=== PATIENT | male | born 1995 | race Caucasian/White ===

== ENCOUNTER 2017-03-11 08:11 | Emergency (ER) | payer OTHER ==
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
[2017-03-11] MEDS ORDERED: MUPIROCIN 2% OINTMENT 22 GM TP ONE (09:13)
[2017-03-11 09:38] VITALS: BP 140/94
== END 2017-03-11 09:38 | disposition home or self-care (01) ==
LOC: ER 08:11
DX: S80.811A Abrasion, right lower leg, initial encounter (principal); S50.311A Abrasion of right elbow, initial encounter; V19.9XXA Pedal cyclist (driver) (passenger) injured in unspecified traffic accident, initial encounter
CPT/HCPCS: 99283; J3490

== ENCOUNTER 2017-08-17 13:13 | Observation (INO) | payer OTHER ==
[~2017-08-17 13:13] MED LIST: DEXAMETHASONE SOD PHOSPHATE INJ 4 MG/1 ML VIAL ONE; GLYCOPYRROLATE INJ 0.4 MG/2 ML VIAL ONE; LIDOCAINE 2% INJ-PF (20 MG/ML) 10 ML AMPUL ONE; NEOSTIGMINE METHYLSULFATE 10 MG/10 ML VIAL ONE; ONDANSETRON HCL INJ/PF 4 MG/2 ML SDV ONE; SUCCINYLCHOLINE CHLORIDE INJ 200 MG/10 ML VIAL ONE; VECURONIUM BROMIDE INJ 10 MG VIAL IV ONE
--- NOTE | 2017-08-17 14:34 | ER Document Report ---
ED Medical Screen (RME) - General Chief Complaint: Abdominal Pain Stated Complaint: STOMACH PAIN Mode of Arrival: Ambulatory Information source: Patient TRAVEL OUTSIDE OF THE [place] IN LAST 30 DAYS: No - HPI Onset: Yesterday Onset/Duration: Sudden, Constant Quality of pain: Sharp Severity: Moderate Associated Symptoms: Diarrhea, Vomiting. denies: Fever Notes: 08/17/17 14:32 Patient arrives with complaints of left lower quadrant abdominal pain. He states this started suddenly and is sharp. It is constant. She had nausea, vomiting, diarrhea. No blood in his stool. No fever. No urinary symptoms. No history of kidney stones. No prior abdominal surgeries. - Related Data Allergies/Adverse Reactions: No Known Allergies Allergy (Unverified 08/17/17 13:40) Past Medical History - Social History Chew tobacco use (# tins/day): No Frequency of alcohol use: None Drug Abuse: None Renal/ Medical History: Denies: Hx Peritoneal Dialysis Surgical Hx: Negative - Immunizations Hx Diphtheria, Pertussis, Tetanus Vaccination: Yes History of Influenza Vaccine for 08/2017 - 12/2017 Season: No Review of Systems - Review of Systems -: Yes All other systems reviewed and negative Physical Exam - Vital signs Vitals: Temp Pulse Resp BP Pulse Ox 98.3 F 83 16 150/85 H 100 08/17/17 13:40 08/17/17 13:40 08/17/17 13:40 08/17/17 13:40 08/17/17 13:40 - Notes Notes: GENERAL: alert, cooperative, nontoxic, no distress. HEAD: normocephalic, atraumatic EYES: conjunctiva pink without discharge, no external redness or swelling. EARS: no external swelling, no external redness NOSE: atraumatic, no external swelling MOUTH/THROAT: mucous membranes moist and pink NECK: soft, supple, full range of motion, no meningismus. CHEST: no distress, lungs clear and equal throughout. No wheezing, rales, rhonchi. CARDIAC: regular rate and rhythm, no murmur, normal capillary refill, normal pulses. BACK: full range of motion, no CVA tenderness. EXTREMITIES: full range of motion of all extremities. No redness, no swelling. NEURO: alert and oriented 3, no focal deficits, full range of motion of all extremities. PYSCH: appropriate mood, affect. Patient is cooperative. SKIN: pink, warm, dry, no rash. ABDO: Tenderness to palpation of the left lower quadrant. Slight tenderness in the right lower quadrant. Course - Vital Signs Vital signs: Temp Pulse Resp BP Pulse Ox 98.3 F 83 16 150/85 H 100 08/17/17 13:40 08/17/17 13:40 08/17/17 13:40 08/17/17 13:40 08/17/17 13:40
[2017-08-17 15:44] LABS: ABSOLUTE LYMPHOCYTES (AUTO) 1.3 10^3/uL (0.5-4.7); ABSOLUTE MONOCYTES (AUTO) 0.6 10^3/uL (0.1-1.4); ABSOLUTE NEUT (AUTO) 14.9 10^3/uL (1.7-8.2); BASOPHILS % (AUTO) 0.2 % (0-2); EOSINOPHILS % (AUTO) 0.1 % (0-6); HEMATOCRIT 52.8 % (37.9-51.0); HEMOGLOBIN 18.8 g/dL (13.5-17.0); HGB HCT DIFFERENCE 3.6; LYMPHOCYTES % (AUTO) 7.5 % (13-45); MEAN CORPUSCULAR HEMOGLOBIN 30.9 pg (27.0-33.4); MEAN CORPUSCULAR HGB CONC 35.5 g/dL (32.0-36.0); MEAN CORPUSCULAR VOLUME 87 fl (80-97); MONOCYTES % (AUTO) 3.4 % (3-13); RED BLOOD COUNT 6.08 10^6/uL (4.35-5.55); RED CELL DISTRIBUTION WIDTH 13.1 % (11.5-14.0); SEGMENTED NEUTROPHILS % (AUTO) 88.8 % (42-78); WHITE BLOOD COUNT 16.8 10^3/uL (4.0-10.5)
[2017-08-17 15:51] LABS: AMORPHOUS SEDIMENT,URINE 1+ /HPF; APPEARANCE,URINE CLOUDY; BILIRUBIN,URINE NEGATIVE (NEGATIVE); GLUCOSE, URINE NEGATIVE (NEGATIVE); KETONES,URINE 80 mg/dL (NEGATIVE); LEUKOCYTE ESTERASE,URINE NEGATIVE (NEGATIVE); NITRITE,URINE NEGATIVE (NEGATIVE); PROTEIN,URINE NEGATIVE (NEGATIVE); URINE SPECIFIC GRAVITY 1.018; UROBILINOGEN,URINE NEGATIVE mg/dL (<2.0)
--- NOTE | 2017-08-17 16:02 | RADIOLOGY REPORT (SQ) ---
EXAM DESCRIPTION: CT ABD/PELVIS WITH IV ONLY COMPLETED DATE/TIME: 08/17/2017 3:42 pm REASON FOR STUDY: llq pain COMPARISON: None. TECHNIQUE: CT scan of the abdomen and pelvis performed using helical scanning technique with dynamic intravenous contrast injection. No oral contrast. Images reviewed with lung, soft tissue, and bone windows. Reconstructed coronal and sagittal MPR images reviewed. Delayed images for evaluation of the urinary system also acquired. All images stored on PACS. All CT scanners at this facility use dose modulation, iterative reconstruction, and/or weight based d osing when appropriate to reduce radiation dose to as low as reasonably achievable (ALARA). [facility]: Dose Right [facility]: CareDose [facility]: Dose Right [facility]: Teradose 4D [facility]: [employer] CONTRAST TYPE AND DOSE: contrast/concentration: Isovue 370.00 mg/ml; Total Contrast Delivered: 100.0 ml; Total Saline Delivered: 45.0 ml RENAL FUNCTION: None required. The patient is less than 50 years old. RADIATION DOSE: Up-to-date CT equipment and radiation dose reduction techniques were employed. CTDIv ol: 10.5 - 14.5 mGy. DLP: 1429 mGy-cm.. LIMITATIONS: None. FINDINGS: LOWER CHEST: No significant findings. No nodules or infiltrates. LIVER: Normal size. No masses. No dilated ducts. SPLEEN: Normal size. No focal lesions. PANCREAS: No masses. No significant calcifications. No adjacent inflammation or peripancreatic fluid collections. Pancreatic duct not dilated. GALLBLADDER: No identified stones by CT criteria. No inflammatory changes to suggest cholecystitis. ADRENAL GLANDS: No significant masses or asymmetry. RIGHT KIDNEY AND URETER: No solid masses. No significant calcifications. No hydronephrosis or hyd roureter. LEFT KIDNEY AND URETER: No solid masses. No significant calcifications. No hydronephrosis or hydr oureter. AORTA AND VESSELS: No aneurysm. No dissection. Renal arteries, SMA, celiac without stenosis. RETROPERITONEUM: No retroperitoneal adenopathy, hemorrhage or masses. BOWEL AND PERITONEAL CAVITY: No masses or inflammatory changes. No free fluid or peritoneal masses. APPENDIX: Small appendicolith. PELVIS: No mass. No free fluid. Normal bladder. ABDOMINAL WALL: No masses. No hernias. BONES: No significant or acute findings. OTHER: No other significant finding. IMPRESSION: No acute abnormality in the abdomen or pelvis. TECHNICAL DOCUMENTATION: JOB ID: [id number] Quality ID # [id number]: Final reports with documentation of one or more dose reduction techniques (e.g., Au tomated exposure control, adjustment of the mA and/or kV according to patient size, use of iterative reconstruction technique) 2010 [employer]- All Rights Reserved
[2017-08-17 16:05] LABS: ALANINE AMINOTRANSFERASE 50 U/L (21-72); ALBUMIN 5.6 g/dL (3.5-5.0); ALKALINE PHOSPHATASE 123 U/L (38-126); ANION GAP 16 (5-19); ASPARTATE AMINO TRANSFERASE 40 U/L (17-59); BILIRUBIN,DIRECT 0.5 mg/dL (0.0-0.4); BILIRUBIN,TOTAL 1.4 mg/dL (0.2-1.3); BLOOD UREA NITROGEN 9 mg/dL (7-20); CALCIUM 10.5 mg/dL (8.4-10.2); CARBON DIOXIDE 27 mmol/L (22-30); CHLORIDE 100 mmol/L (98-107); GLUCOSE 110 mg/dL (75-110); LIPASE 59.1 U/L (23-300); POTASSIUM 4.2 mmol/L (3.6-5.0); SODIUM 143.3 mmol/L (137-145); TOTAL PROTEIN 9.3 g/dL (6.3-8.2)
[2017-08-17] MEDS ORDERED: ONDANSETRON HCL INJ/PF 4 MG/2 ML SDV IV ONE (17:09)
[2017-08-17] MEDS ORDERED: NORMAL SALINE 1000 ML 1,000 ML IV ONE ×2 (17:09→18:08)
--- NOTE | 2017-08-17 18:14 | ER Document Report ---
ED GI/ - General Mode of Arrival: Ambulatory Information source: Patient TRAVEL OUTSIDE OF THE [place] IN LAST 30 DAYS: No <JULIAN CALVILLO - Last Filed: 08/17/17 22:17> <FARHAD JOHNSON - Last Filed: 08/17/17 23:05> - General Chief Complaint: Abdominal Pain Stated Complaint: STOMACH PAIN Time Seen by Provider: 08/17/17 17:02 Notes: Patient is a 22-year-old male who presents to the emergency department today with complaints of abdominal pain with associated nausea and vomiting. Patient states that this pain began this morning upon awakening. Patient describes the pain as above his waistline and below his rib cage on the right side. Patient states that he has been vomiting up bile. Patient denies any flank pain. (JULIAN CALVILLO) - Related Data Allergies/Adverse Reactions: No Known Allergies Allergy (Unverified 08/17/17 13:40) Home Medications: Current Home Medications No Home Medications 08/17/17 [History] Past Medical History - General Information source: Patient - Social History Smoking Status: Current Every Day Smoker Cigarette use (# per day): Yes Chew tobacco use (# tins/day): Yes Frequency of alcohol use: None Drug Abuse: None Lives with: Family Family History: Reviewed & Not Pertinent Patient has suicidal ideation: No - Medical History Medical History: Negative Surgical Hx: Negative - Immunizations Hx Diphtheria, Pertussis, Tetanus Vaccination: Yes <JULIAN CALVILLO - Last Filed: 08/17/17 22:17> Review of Systems - Review of Systems Constitutional: No symptoms reported EENT: No symptoms reported Cardiovascular: No symptoms reported Respiratory: No symptoms reported Gastrointestinal: See HPI, Abdominal pain, Diarrhea, Nausea, Vomiting Genitourinary: denies: Flank pain Male Genitourinary: No symptoms reported Musculoskeletal: No symptoms reported Skin: No symptoms reported Hematologic/Lymphatic: No symptoms reported Neurological/Psychological: No symptoms reported -: Yes All other systems reviewed and negative <JULIAN CALVILLO - Last Filed: 08/17/17 22:17> Physical Exam <JULIAN CALVILLO - Last Filed: 08/17/17 22:17> <FARHAD JOHNSON - Last Filed: 08/17/17 23:05> - Vital signs Vitals: Temp Pulse Resp BP Pulse Ox 98.3 F 83 16 150/85 H 100 08/17/17 13:40 08/17/17 13:40 08/17/17 13:40 08/17/17 13:40 08/17/17 13:40 - Notes Notes: Physical Exam: General: Alert, appears uncomfortable. HEENT: Normocephalic. Atraumatic. PERRL. Extraocular movements intact. Oropharynx clear. Dry mucous membranes. Neck: Supple. Non-tender. Respiratory: No respiratory distress. Clear and equal breath sounds bilaterally. Cardiovascular: Tachycardic, regular rhythm. Abdominal: RLQ tenderness with palpation with guarding, no rebound. No distension. Normal Bowel Sounds. Back: Non-tender. No deformity or step off. Extremities: Moves all four extremities. Upper extremities: Normal inspection. Normal ROM. Lower extremities: Normal inspection. No edema. Normal ROM. Neurological: Normal cognition. AAOx4. Normal speech. Psychological: Normal affect. Normal Mood. Skin: Warm. Dry. Normal color. (JULIAN CALVILLO) Course - Laboratory Result Diagrams: 08/17/17 15:27 08/17/17 15:27 <JULIAN CALVILLO - Last Filed: 08/17/17 22:17> - Laboratory Result Diagrams: 08/17/17 15:27 08/17/17 15:27 - Diagnostic Test Radiology reviewed: Reports reviewed <FARHAD JOHNSON - Last Filed: 08/17/17 23:05> - Re-evaluation Re-evalutation: 08/17/17 Patient presents with right lower quadrant pain and vomiting. Patient has right lower quadrant tenderness with guarding. Patient is also been vomiting. CT with appendicolith. Patient was discussed with Dr. Lopez -- will take the patient to the OR. Patient is agreeable to this plan. Patient has been n.p.o. Stable at time of admission. (FARHAD JOHNSON) - Vital Signs Vital signs: Temp Pulse Resp BP Pulse Ox 97.8 F 84 18 135/86 H 98 08/17/17 22:20 08/17/17 22:20 08/17/17 22:20 08/17/17 22:20 08/17/17 22:20 - Laboratory Laboratory results interpreted by me: 08/17/17 08/17/1708/17/17 15:27 15:27 15:27 WBC 16.8 H RBC 6.08 H Hgb 18.8 H Hct 52.8 H Seg Neutrophils % 88.8 H Lymphocytes % 7.5 L Absolute Neutrophils 14.9 H Calcium 10.5 H Total Bilirubin 1.4 H Direct Bilirubin 0.5 H Total Protein 9.3 H Albumin 5.6 H Urine Ketones 80 H Critical Care Note - Critical Care Note Total time excluding time spent on procedures (mins): 35 - Evaluation and management of acute abdominal pain, multiple re-evaluations, consultation with surgeon, counseling of patient, coordination of admission <FARHAD JOHNSON - Last Filed: 08/17/17 23:05> Discharge <JULIAN CALVILLO - Last Filed: 08/17/17 22:17> - Discharge Admitting Provider: Surgicalist - [facility] Unit Admitted: Surgical Floor <FARHAD JOHNSON - Last Filed: 08/17/17 23:05> - Discharge Clinical Impression: Dehydration Appendicitis Qualifiers: Appendicitis type: acute appendicitis Acute appendicitis type: with localized peritonitis Qualified Code(s): K35.3 - Acute appendicitis with localized peritonitis Condition: Stable Disposition: ADMITTED INPATIENT Scribe Attestation: 08/17/17 23:05 I personally performed the services described in the documentation, reviewed and edited the documentation which was dictated to the scribe in my presence, and it accurately records my words and actions. (FARHAD JOHNSON) Scribe Documentation - Scribe Written by Valentino:: Valentino Galvan, 08/17/2017 2104 acting as scribe for :: Sarmad <JULIAN CALVILLO - Last Filed: 08/17/17 22:17>
[2017-08-17] MEDS ORDERED: PIPERACILLIN/TAZOBACTAM 3.375 GM VIAL IV ONE (18:21)
[2017-08-17] MEDS ORDERED: HYDROMORPHONE HCL INJ/PF 2 MG/ML AMPULE ONE (19:00)
[2017-08-17] MEDS ORDERED: FENTANYL CITRATE INJ/PF 100 MCG/2 ML AMPUL ONE (19:01)
[2017-08-17] MEDS ORDERED: PROPOFOL INJ 200 MG/20 ML VIAL IV ONE (19:01)
[2017-08-17] MEDS ORDERED: MIDAZOLAM 2 MG/2 ML INJ ONE (19:01)
[2017-08-17] MEDS ORDERED: BUPIVACAINE HCL 0.25 % INJ/PF (2.5 MG/1 ML) 30 ML VIAL ONE (19:06)
[2017-08-17] MEDS ORDERED: PROMETHAZINE HCL INJ 25 MG/1 ML VIAL IV PRN (19:17)
[2017-08-17] MEDS ORDERED: FENTANYL CITRATE INJ/PF 100 MCG/2 ML AMPUL IV PRN ×3 (19:17)
[2017-08-17] MEDS ORDERED: MORPHINE SULFATE 10 MG/ML INJ IV PRN ×2 (19:17→20:44)
[2017-08-17] MEDS ORDERED: DIPHENHYDRAMINE HCL 50 MG/ML VIAL IV PRN (19:17)
[2017-08-17] MEDS ORDERED: MEPERIDINE HCL/PF INJ 25 MG/1 ML DISP.SYRIN IV PRN (19:17)
--- NOTE | 2017-08-17 19:21 | PDOC H&P ---
History of Present Illness Admission Date/PCP: Today Patient complains of: Abdominal pain nausea vomiting History of Present Illness: LEONARD ADAMES is a 22 year old male presents emergency department by ground rescue complaining of acute onset abdominal pain and multiple episodes of nausea and vomiting. One bowel movement loose. Patient denies history of trauma, previous episodes, or contact with any infected people. He was seen in the emergency department where is found to have right lower quadrant tenderness , leukocytosis, and CT scan findings consistent with appendicolith. Surgery was consulted and patient was advised for definitive management Past Surgical History Past Surgical History: Reports: Other - Minor trauma right knee Social History Smoking Status: Current Every Day Smoker Family History Family History: Reviewed & Not Pertinent Parental Family History Reviewed: No Children Family History Reviewed: NA Sibling(s) Family History Reviewed.: NA Medication/Allergy Allergies/Adverse Reactions: No Known Allergies Allergy (Unverified 08/17/17 13:40) Review of Systems ROS unobtainable: Other Constitutional: PRESENT: as per HPI Eyes: ABSENT: visual disturbances Ears: ABSENT: hearing changes Cardiovascular: ABSENT: chest pain, dyspnea on exertion, edema, orthropnea, palpitations Genitourinary: ABSENT: dysuria, hematuria Musculoskeletal: PRESENT: as per HPI Physical Exam Vital Signs: Temp Pulse Resp BP Pulse Ox 98.7 F 61 18 149/88 H 100 08/17/17 16:39 08/17/17 16:39 08/17/17 16:39 08/17/17 16:39 08/17/17 16:39 Intake & Output 08/16/17 08/17/17 08/18/17 06:59 06:59 06:59 Weight 93.9 kg General appearance: PRESENT: mild distress Head exam: PRESENT: normocephalic Eye exam: PRESENT: EOMI Mouth exam: PRESENT: dry mucosa Neck exam: PRESENT: full ROM, JVD Respiratory exam: PRESENT: clear to auscultation chano Cardiovascular exam: PRESENT: RRR Pulses: PRESENT: normal dorsalis pedis pul GI/Abdominal exam: PRESENT: tenderness - Right lower quadrant with guarding Rectal exam: PRESENT: deferred Musculoskeletal exam: PRESENT: ambulatory Neurological exam: PRESENT: awake, oriented to person, oriented to place, oriented to time Skin exam: PRESENT: dry Results Laboratory Results: 08/17/17 15:27 08/17/17 15:27 08/17/17 08/17/17 08/17/17 15:27 15:27 15:27 WBC 16.8 H RBC 6.08 H Hgb 18.8 H Hct 52.8 H MCV 87 MCH 30.9 MCHC 35.5 RDW 13.1 Plt Count 245 Seg Neutrophils % 88.8 H Lymphocytes % 7.5 L Monocytes % 3.4 Eosinophils % 0.1 Basophils % 0.2 Absolute Neutrophils 14.9 H Absolute Lymphocytes 1.3 Absolute Monocytes 0.6 Absolute Eosinophils 0.0 Absolute Basophils 0.0 Sodium 143.3 Potassium 4.2 Chloride 100 Carbon Dioxide 27 Anion Gap 16 BUN 9 Creatinine 0.90 Est GFR ( Amer) > 60 Est GFR (Non-Af Amer) > 60 Glucose 110 Calcium 10.5 H Total Bilirubin 1.4 H AST 40 ALT 50 Alkaline Phosphatase 123 Total Protein 9.3 H Albumin 5.6 H Lipase 59.1 Urine Color YELLOW Urine Appearance CLOUDY Urine pH 7.0 Ur Specific Sandy 1.018 Urine Protein NEGATIVE Urine Glucose (UA) NEGATIVE Urine Ketones 80 H Urine Blood NEGATIVE Urine Nitrite NEGATIVE Ur Leukocyte Esterase NEGATIVE Urine WBC (Auto) 1 Impressions: Abdomen/Pelvis CT 08/17/17 14:31 IMPRESSION: No acute abnormality in the abdomen or pelvis. Surgeon's interpretation of the CT scan of the abdomen and pelvis: No oral contrast; no evidence of fluid in the pelvis; the appendix appears to be thickened. Assessment & Plan - Diagnosis (1) Abdominal pain, acute, right lower quadrant Is this a current diagnosis for this admission?: Yes Plan: Acute onset right lower quadrant pain, nausea vomiting tenderness leukocytosis and CT scan findings suspicious for appendicitis; clinical picture is consistent with acute appendicitis in this otherwise healthy male Recommendations: 1. Proceed with laparoscopic, possible open appendectomy, Dr. Lopez, 1 hour , general anesthesia 2. Anticipate discharge home in the morning. - Time Time Spent: 50 to 70 Minutes Critical Time spent with patient: 15-24 minutes Anticipated discharge: Home - Inpatient Certification Medical Necessity: Need For IV Fluids, Need for Pain Control, Need for IV Antibiotics, Need for Surgery
[2017-08-17] MEDS ORDERED: ONDANSETRON HCL INJ/PF 4 MG/2 ML SDV IV PRN (20:44)
--- NOTE | 2017-08-17 20:44 | Operative Report ---
Operative Report DATE OF SURGERY: 08/17/17 PREOPERATIVE DIAGNOSIS: Acute appendicitis POSTOPERATIVE DIAGNOSIS: Same OPERATION: Laparoscopic appendectomy SURGEON: RAMANDEEP RUIZ ANESTHESIA: GA TISSUE REMOVED OR ALTERED: 1 appendix COMPLICATIONS: None ESTIMATED BLOOD LOSS: 30 cc INTRAOPERATIVE FINDINGS: See below PROCEDURE: Patient was taken from the preop holding her to the main operating room where general anesthesia was induced. Jason catheter was inserted uneventfully clear yellow urine returned the abdomen was exposed, hair clipped, prepped and draped sterile fashion Surgical plan and surgical timeout conducted Markings were made on the skin for three-port appendectomy, and skin anesthetized with quarter percent Marcaine. A supraumbilical vertical incision made with a knife, a Veress needle was inserted the peritoneal cavity pneumoperitoneum was established. Veress needle removed, 5 mm ports inserted and a 5 mm flexible scope was inserted. Under direct visualization 2 additional ports were placed one 5 mm suprapubic and 12 mm in the left lower quadrant Of note there was bleeding coming from the port site around the actual port in the supraumbilical position. We used rotational traction to temporize the using throughout the subsequent appendectomy. The appendix was acutely inflamed, suppurative with a small pool of pus adjacent to it. Photos were taken. Mesoappendix was mobilized along with the appendix cephalad. The retroperitoneal attachments were divided sharply. At this point we had the appendix suspended solely from its base and the mesoappendix. We brought onto the field a 45 mm blue load [place] stapler and deployed it across the base of the appendix and the mesoappendix taking it in 1 firing. The specimen was freed up and placed in an Endobag and brought out of the patient to the left lower quadrant port site incision. We now control bleeding from the staple line with 1 piece of Surgicel. We now turned our attention to the bleeding which was continued to ooze from the supraumbilical brett-port site tissue. We used the disposable suture passer and use a 0 Vicryl suture in a [id number] fashion and secured a knot closing the 5 mm port site by removing the port and securing the knot. The bleeding abated We irrigated the peritoneal cavity out just in the pelvic region. There was an inflamed appendiceal epiploica. We felt the operation was complete. We will recheck for bleeding and there was none. We felt it was safe to conclude the procedure sponge and needle counts are correct. All ports removed under direct visualization pneumoperitoneum evacuated wounds closed with 3-0 Vicryl benzoin and Steri-Strips. Patient tolerated procedure well, extubated, and taken to recovery in stable condition.
[2017-08-18] MEDS ORDERED: PIPERACILLIN/TAZOBACTAM 3.375 GM VIAL IV ONE (01:02)
[2017-08-18] MEDS: PIPERACILLIN SODIUM/TAZOBACTAM 3.375 GM in NORMAL SALINE 100 ML IV SCH ×2 (01:16→05:33)
[2017-08-18 13:50] VITALS: BP 121/69
--- NOTE | 2017-08-18 22:23 | DISCHARGE SUMMARY E ---
Discharge Summary NAME: LEONARD ADAMES : 1995 AGE: 22Y ADMITTED: 08/17/2017 DISCHARGED: 08/18/2017 OPERATIONS: Laparoscopic appendectomy, 08/17/2017, Dr. Lopez, surgeon. SUMMARY: This is a 22-year-old male noted to have abdominal pains and CAT scan revealed appendicolith. The patient underwent laparoscopic appendectomy for acute appendicitis done by Dr. Lopez on 08/17/2017. Postoperatively the patient did very well and tolerated a regular diet with minimal abdominal pains on 08/18/2017. The patient was discharged improved on 08/18/2017, to be followed up in the Surgical Clinic in about a week. He is advised not to do any heavy lifting for about no more than 15 pounds until seen in the clinic in about a week. DICTATING PHYSICIAN: CECILIO BRANDON M.D. [id number] PHY#: [id number] ID: [id number] JOB#: [id number] ACCT: [id number] cc:LOCAL, CECILIO ALEXIS M.D, M.D. GROUP, E. [facility]. >
== END 2017-08-18 14:02 | disposition home or self-care (01) ==
LOC: OROUT 13:13 → EH 19:13 → 4W 21:53
PROVIDERS: ATTEND Surgery
PROC: 3E1M38Z Irrigation of Peritoneal Cavity using Irrigating Substance, Percutaneous Approach (ICD-10-PCS; 2017-08-17)
PROC: 0DTJ4ZZ Resection of Appendix, Percutaneous Endoscopic Approach (ICD-10-PCS; principal; 2017-08-17 19:00)
DX: K35.3 Acute appendicitis with localized peritonitis (principal); K63.89 Other specified diseases of intestine; F17.210 Nicotine dependence, cigarettes, uncomplicated; E86.0 Dehydration
CPT/HCPCS: 99285; 36415; 83690; 85025; 80053; 81001; 88304 ×2; 74177; 44970; 49084; J2250; J1100; J3010; J3490 ×2; J1170; J0330; J2405; J7030; J2704; J2543; 840

== ENCOUNTER 2019-06-24 04:15 | Emergency (ER) | payer OTHER ==
[2019-06-24] MEDS ORDERED: NORMAL SALINE 1000 ML 1,000 ML IV ONE (07:03)
[2019-06-24] MEDS ORDERED: FENTANYL CITRATE INJ/PF 100 MCG/2 ML AMPUL IV ONE (07:03)
--- NOTE | 2019-06-24 07:15 | ER Document Report ---
ED General - General Chief Complaint: Abdominal Pain Stated Complaint: VOMITING Time Seen by Provider: 06/24/19 07:02 TRAVEL OUTSIDE OF THE [place] IN LAST 30 DAYS: No - HPI Notes: Patient presents with sudden onset of right lower quadrant pain that started approximately 2:00 AM. Patient is having dry heaving and nausea. There is illnesses no no medical problems does not take any medications on a daily basis. He had a normal bowel movement earlier this morning. He has been consistent and constant since time of onset but waxes and wanes in intensity. Note, his pain does not radiate to his testicles. - Related Data Allergies/Adverse Reactions: No Known Allergies Allergy (Unverified 08/17/17 13:40) Past Medical History - Social History Smoking Status: Unknown if Ever Smoked Family History: Reviewed & Not Pertinent Patient has suicidal ideation: No Patient has homicidal ideation: No Renal/ Medical History: Denies: Hx Peritoneal Dialysis Psychiatric Medical History: Denies: Hx Depression Past Surgical History: Reports: Other - Minor trauma right knee - Immunizations Hx Diphtheria, Pertussis, Tetanus Vaccination: Yes Review of Systems - Review of Systems Constitutional: No symptoms reported EENT: No symptoms reported Cardiovascular: No symptoms reported Respiratory: No symptoms reported Gastrointestinal: See HPI Genitourinary: No symptoms reported Male Genitourinary: No symptoms reported Musculoskeletal: No symptoms reported Skin: No symptoms reported Hematologic/Lymphatic: No symptoms reported Neurological/Psychological: No symptoms reported Physical Exam - Vital signs Vitals: Temp Pulse Resp BP Pulse Ox 97.3 F 86 20 154/87 H 98 06/24/19 04:29 06/24/19 04:29 06/24/19 04:29 06/24/19 04:29 06/24/19 04:29 - General General appearance: Appears well, Alert - HEENT Head: Normocephalic, Atraumatic - Respiratory Respiratory status: No respiratory distress Chest status: Nontender Breath sounds: Normal - Cardiovascular Rhythm: Regular Heart sounds: Normal auscultation Murmur: No - Abdominal Inspection: Normal Distension: No distension Bowel sounds: Normal Tenderness: Other - Mild tenderness right lower quadrant - Extremities General upper extremity: Normal inspection General lower extremity: Normal inspection - Neurological Neuro grossly intact: Yes Cognition: Normal Orientation: AAOx4 Course - Re-evaluation Re-evalutation: 06/24/19 09:46 Patient found to have right distal ureteral stone. Urinalysis does not show signs of infection patient does not have concerning serum leukocytosis and has stable vitals no fever. Discussed with patient plan of care and return pre cautions regarding any fevers return immediately to the emergency department. Urology referral provided. - Vital Signs Vital signs: Temp Pulse Resp BP Pulse Ox 97.3 F 86 20 154/87 H 98 06/24/19 04:29 06/24/19 04:29 06/24/19 04:29 06/24/19 04:29 06/24/19 04:29 - Laboratory Result Diagrams: 06/24/19 07:35 06/24/19 07:35 Laboratory results interpreted by me: 06/24/19 06/24/19 06/24/19 07:35 07:35 08:15 WBC 11.4 H Lymph % (Auto) 9.8 L Absolute Neuts (auto) 9.5 H Seg Neutrophils % 83.6 H C-Reactive Protein 16.0 H Urine Ketones 20 H Urine Blood LARGE H Urine Urobilinogen 2.0 H Discharge - Discharge Clinical Impression: Kidney stone Condition: Good Disposition: HOME, SELF-CARE Prescriptions: Naproxen 500 mg PO BID PRN #15 tablet PRN Reason: Ondansetron [Zofran Odt 4 mg Tablet] 1 tab PO ASDIR PRN #15 tab.rapdis PRN Reason: For Nausea/Vomiting Referrals: LEONELA MCMAHON MD [NO LOCAL MD] - Follow up in 3-5 days
[2019-06-24 07:48] LABS: ABSOLUTE LYMPHOCYTES (AUTO) 1.1 10^3/uL (0.5-4.7); ABSOLUTE MONOCYTES (AUTO) 0.7 10^3/uL (0.1-1.4); ABSOLUTE NEUT (AUTO) 9.5 10^3/uL (1.7-8.2); BASOPHILS % (AUTO) 0.4 % (0-2); EOSINOPHILS % (AUTO) 0.1 % (0-6); HEMATOCRIT 47.2 % (37.9-51.0); LYMPHOCYTES % (AUTO) 9.8 % (13-45); MEAN CORPUSCULAR HEMOGLOBIN 30.5 pg (27.0-33.4); MEAN CORPUSCULAR HGB CONC 33.8 g/dL (32.0-36.0); MEAN CORPUSCULAR VOLUME 90 fl (80-97); MONOCYTES % (AUTO) 6.1 % (3-13); PLATELET COUNT 186 10^3/uL (150-450); RED BLOOD COUNT 5.24 10^6/uL (4.35-5.55); RED CELL DISTRIBUTION WIDTH 13.1 % (11.5-14.0); SEGMENTED NEUTROPHILS % (AUTO) 83.6 % (42-78); TOTAL CELLS COUNTED % (AUTO) 100 %; WHITE BLOOD COUNT 11.4 10^3/uL (4.0-10.5)
--- NOTE | 2019-06-24 08:24 | RADIOLOGY REPORT (SQ) ---
EXAM DESCRIPTION: CT ABD/PELVIS WITH IV ONLY COMPLETED DATE/TIME: 06/24/2019 8:10 am REASON FOR STUDY: rlq pain COMPARISON: 08/17/2017 TECHNIQUE: CT scan of the abdomen and pelvis performed using helical scanning technique with dynamic intravenous contrast injection. No oral contrast. Images reviewed with lung, soft tissue, and bone windows. Reconstructed coronal and sagittal MPR images reviewed. Delayed images for evaluation of the urinary system also acquired. All images stored on PACS. All CT scanners at this facility use dose modulation, iterative reconstruction, and/or weight based d osing when appropriate to reduce radiation dose to as low as reasonably achievable (ALARA). [facility]: Dose Right [facility]: CareDose [facility]: Dose Right [facility]: Teradose 4D [facility]: Boostable CONTRAST TYPE AND DOSE: 94 mL Omnipaque 350 RENAL FUNCTION: None required. The patient is less than 50 years old. RADIATION DOSE: CT Rad equipment meets quality standard of care and radiation dose reduction techniq ues were employed. CTDIvol: 7.6 - 8.8 mGy. DLP: 887 mGy-cm.. LIMITATIONS: None. FINDINGS: LOWER CHEST: No significant findings. No nodules or infiltrates. LIVER: Normal size. No masses. No dilated ducts. SPLEEN: Normal size. No focal lesions. PANCREAS: No masses. No significant calcifications. No adjacent inflammation or peripancreatic fluid collections. Pancreatic duct not dilated. GALLBLADDER: No identified stones by CT criteria. No inflammatory changes to suggest cholecystitis. ADRENAL GLANDS: No significant masses or asymmetry. RIGHT KIDNEY AND URETER: No solid masses. No significant calcifications. No hydronephrosis. Ther e is a 3.7 mm distal right ureteral stone. There is mild dilatation of the right ureter so this is p resumably partially obstructing. LEFT KIDNEY AND URETER: No solid masses. No significant calcifications. No hydronephrosis or hydr oureter. AORTA AND VESSELS: No aneurysm. No dissection. Renal arteries, SMA, celiac without stenosis. RETROPERITONEUM: No retroperitoneal adenopathy, hemorrhage or masses. BOWEL AND PERITONEAL CAVITY: No masses or inflammatory changes. No free fluid or peritoneal masses. APPENDIX: Surgically absent. PELVIS: No mass. No free fluid. Normal bladder. ABDOMINAL WALL: No masses. No hernias. BONES: No significant or acute findings. OTHER: No other significant finding. IMPRESSION: 3.7 mm distal right ureteral stone near the UVJ. This results in at least partial obstr uction there is dilatation of the right ureter. No hydronephrosis. TECHNICAL DOCUMENTATION: JOB ID: [id number] Quality ID # [id number]: Final reports with documentation of one or more dose reduction techniques (e.g., Au tomated exposure control, adjustment of the mA and/or kV according to patient size, use of iterative reconstruction technique) 2010 [employer]- All Rights Reserved Reading location - IP/workstation name: [email or web address]
[2019-06-24 08:25] LABS: ALBUMIN 4.8 g/dL (3.5-5.0); ALKALINE PHOSPHATASE 101 U/L (38-126); ANION GAP 11 (5-19); ASPARTATE AMINO TRANSFERASE 25 U/L (17-59); BILIRUBIN,DIRECT 0.3 mg/dL (0.0-0.4); BILIRUBIN,TOTAL 1.3 mg/dL (0.2-1.3); BLOOD UREA NITROGEN 14 mg/dL (7-20); CALCIUM 9.5 mg/dL (8.4-10.2); CARBON DIOXIDE 27 mmol/L (22-30); CHLORIDE 102 mmol/L (98-107); GLUCOSE 107 mg/dL (75-110); POTASSIUM 3.7 mmol/L (3.6-5.0); TOTAL PROTEIN 7.3 g/dL (6.3-8.2)
[2019-06-24 08:34] LABS: APPEARANCE,URINE CLEAR; BILIRUBIN,URINE NEGATIVE (NEGATIVE); COLOR,URINE YELLOW; GLUCOSE, URINE NEGATIVE (NEGATIVE); KETONES,URINE 20 mg/dL (NEGATIVE); LEUKOCYTE ESTERASE,URINE NEGATIVE (NEGATIVE); NITRITE,URINE NEGATIVE (NEGATIVE); PROTEIN,URINE NEGATIVE (NEGATIVE); URINE SPECIFIC GRAVITY 1.045
[2019-06-24 12:16] VITALS: BP 115/82
== END 2019-06-24 11:50 | disposition home or self-care (01) ==
LOC: ER 04:15
DX: N20.0 Calculus of kidney (principal); R10.31 Right lower quadrant pain; R11.2 Nausea with vomiting, unspecified
CPT/HCPCS: 99284; 96361; 96374; 36415; 83735; 85025; 86140; 80053; 81001; 74177; J3010; J7030